=== PATIENT | female | born 1980 | race Caucasian/White ===

== ENCOUNTER 2016-07-17 15:43 | Emergency (ER) | payer OTHER ==
--- NOTE | 2016-07-17 17:49 | ED NURSING NOTES ---
Clinical Report - Nurses [facility] [address] [place] [address] 07/17/2016 15:44 Patient: TRACY GOLDSMITH TRIAGE Triage time 16:Jul 17 2016. Acuity: LEVEL 4. Chief Complaint: SKIN LESION. --16:24 Justin Bailey R.N. 16:21 07/17/16. BP: 126/83. HR: 80. RR: 18. O2 saturation: 100%. Temp: 98.1 F. Pain level now 0/10. --16:24 Justin Bailey R.N. Weight: 104.3 kg stated. Height/Length: 69 inches Per Patient. BMI: 34. --16:23 Justin Bailey R.N. Medications None. --16:22 Justin Bailey R.N. Allergies No Known Drug Allergy. --16:22 Justin Bailey R.N. History Arrived by private vehicle. ( Pt reports hx of abcess today abcess on inside of thigh). Reported as located on the left thigh. Onset. (3 days). SOCIAL HX: Light tobacco smoker. Occasional alcohol use. History of occasional drug use: marijuana. --16:24 Justin Bailey R.N. Interventions ID band on patient. To treatment room. --16:24 Justin Bailey R.N. PHYSICAL ASSESSMENT GENERAL / NEURO / PSYCH: Alert. Appears in pain. Oriented X 4. HEENT: Pupils equal, round and reactive to light. Mucous membranes are pink. RESPIRATORY: Respirations not labored. CVS: Capillary refill less than 2 seconds. Pulses within normal limits. GI / : Abdomen nontender. SKIN: Skin is warm. Skin lesion on the left thigh. --16:26 Justin Bailey R.N. NURSING PROGRESS NOTES Monitoring of patient in place. Patient gowned. Reassurance given. Call light placed in reach. Side rails up x 1. Bed placed in lowest position. --16:27 Leo, Justin, R.N. DISPOSITION / DISCHARGE Departure time: 1800. No learning barriers present. Discharge instructions provided and reviewed with the patient. Reviewed warnings. Reviewed medication(s). Treatments reviewed. Reviewed referrals. Written instructions provided in Portuguese. The patient was discharged by the physician. She was discharged home. She left the Emergency Department ambulatory and via private vehicle. Family member driving. --18:21 Justin Bailey R.N. 18:20 07/17/16. BP: 149/71. HR: 85. RR: 18. O2 saturation: 100%. Temp: 98.9 F. --18:21 Justin Bailey R.N. Locked/Released at 07/17/2016 20:59 by Justin Bailey R.N.
--- NOTE | 2016-07-17 17:49 | ED CLINICAL REPORT ---
Clinical Report - Physicians/Mid Levels [facility] [address] [place] [address] 07/17/2016 15:44 Patient: TRACY GOLDSMITH Time Seen: 16:59. Arrived- By private vehicle. Historian- patient. HISTORY OF PRESENT ILLNESS Chief Complaint: TENDER AREA. This started 3 days ago and is still present. It was gradual in onset and has been constant. It is described as painful. It has been located on the left thigh. No cause has been identified. Similar symptoms previously: Several times. REVIEW OF SYSTEMS No fever, chills, cough, difficulty breathing or abdominal pain. No nausea, diarrhea or vomiting. PAST HISTORY PCP: Prior Abscesses. SOCIAL HISTORY Current some days smoker. ADDITIONAL NOTES The nursing notes have been reviewed. PHYSICAL EXAM Vital Signs: 07/17/2016 18:20 BP: 149/71. HR: 85. RR: 18. O2 saturation: 100%. Temp: 98.9 F. 07/17/2016 16:21 BP: 126/83. HR: 80. RR: 18. O2 saturation: 100%. Temp: 98.1 F. Respiratory: Breath sounds normal. Abdomen: Nontender. Skin: Single medium abscess to left thigh. Extremities: Left thigh: tenderness and swelling located in the medial aspect of upper thigh. LABS, X-RAYS, AND EKG Laboratory Tests: Culture, Wound Deep: (ANNA: 07/17/2016 17:30) ( MsgRcvd 07/18/2016 10:27) IP Specimen Comment: L THIGH SPECIMEN DESCRIPTION: SWAB Test Result Flag Units (Reference) GRAM STAIN, WOUND, DEEP GRAM POSITIVE COCCI: FEW WHITE BLOOD CELLS: FEW CULTURE, WOUND DEEP, AEROBIC DATE: 07/18/16 PRELIM REPORT: PRELIMINARY REPORT #1 VERY EARLY GROWTH: VERY EARLY GROWTH: CULTURE TOO YOUNG FOR WORKUP-REINCUBATED . PROGRESS AND PROCEDURES Incision & Drainage of Abscess: The abscess is located in the left thigh. Consent was obtained. Local anesthesia provided using 0.50% Marcaine. Skin cleansed with Betadine. The abscess was incised with a #15 surgical blade. A small amount of pus was drained. Cavity was irrigated with saline and packed with gauze. Sample obtained for cultures. Estimated blood loss: 2 mL. Disposition: Discharged. Condition: stable. CLINICAL IMPRESSION Single abscess to the left lower extremity with incision and drainage. INSTRUCTIONS (IMMEDIATE RECHECK FOR INCREASING REDNESS SWELLING OR PAIN. RECHECK ABSCESS IN 3 DAYS - SOONER IF NEEDED). Prescription Medications: Hydrocodone/APAP 5mg / 325mg: take 1-2 orally as needed for pain. Dispense twelve (12). No refill. Bactrim DS 800 mg / 160 mg: Take 1 tablet orally every 12 hours for 7 days. Dispense fourteen (14). No refills. Substitution is permissible. Understanding of the discharge instructions verbalized by patient. Follow-up with: [facility], , , [address], [facility], [id number] Follow up. Call for an appointment. Reason for referral: ESTABLISH PRIMARY CARE AND RECHECK ABSCESS. (Electronically signed by Lane Gallegos MD 07/19/2016 23:02)
--- NOTE | 2016-07-17 17:49 | ED NURSING NOTES ---
Clinical Report - Nurses [facility] [address] [place] [address] 07/17/2016 15:44 Patient: TRACY GOLDSMITH TRIAGE Triage time 16:Jul 17 2016. Acuity: LEVEL 4. Chief Complaint: SKIN LESION. --16:24 Justin Bailey R.N. 16:21 07/17/16. BP: 126/83. HR: 80. RR: 18. O2 saturation: 100%. Temp: 98.1 F. Pain level now 0/10. --16:24 Justin Bailey R.N. Weight: 104.3 kg stated. Height/Length: 69 inches Per Patient. BMI: 34. --16:23 Justin Bailey R.N. Medications None. --16:22 Justin Bailey R.N. Allergies No Known Drug Allergy. --16:22 Justin Bailey R.N. History Arrived by private vehicle. ( Pt reports hx of abcess today abcess on inside of thigh). Reported as located on the left thigh. Onset. (3 days). SOCIAL HX: Light tobacco smoker. Occasional alcohol use. History of occasional drug use: marijuana. --16:24 Justin Bailey R.N. Interventions ID band on patient. To treatment room. --16:24 Justin Bailey R.N. PHYSICAL ASSESSMENT GENERAL / NEURO / PSYCH: Alert. Appears in pain. Oriented X 4. HEENT: Pupils equal, round and reactive to light. Mucous membranes are pink. RESPIRATORY: Respirations not labored. CVS: Capillary refill less than 2 seconds. Pulses within normal limits. GI / : Abdomen nontender. SKIN: Skin is warm. Skin lesion on the left thigh. --16:26 Justin Bailey R.N. NURSING PROGRESS NOTES Monitoring of patient in place. Patient gowned. Reassurance given. Call light placed in reach. Side rails up x 1. Bed placed in lowest position. --16:27 Leo, Justin, R.N. DISPOSITION / DISCHARGE Departure time: 1800. No learning barriers present. Discharge instructions provided and reviewed with the patient. Reviewed warnings. Reviewed medication(s). Treatments reviewed. Reviewed referrals. Written instructions provided in Greek. The patient was discharged by the physician. She was discharged home. She left the Emergency Department ambulatory and via private vehicle. Family member driving. --18:21 Justin Bailey R.N. 18:20 07/17/16. BP: 149/71. HR: 85. RR: 18. O2 saturation: 100%. Temp: 98.9 F. --18:21 Justin Bailey R.N. Locked/Released at 07/17/2016 20:59 by Justin Bailey R.N.
--- NOTE | 2016-07-17 17:49 | ED ORDER SUMMARY ---
..... Patient: TRACY GOLDSMITH OrderSheet [facility] VisitID: [id number] [address] [place] [address] 35y, F Registration Date/Time: 07/17/2016 ORDER SHEET Weight: 104.3 kg (stated) Allergies: No Known Drug Allergy GENERAL ORDERS: Culture, Wound Deep (Leg) (swab) (L thigh) Urgent (17:44 07/17/2016 [facility]) (Ack 17:48 Chrissy) - (DRESSING PLEASE) (17:45 07/17/2016 [facility]) (Ack 17:48 Chrissy) MEDICATION ORDERS: IV FLUIDS: ORDER SHEET NOTES: [Electronically signed by Justin Bailey R.N. (20:59 07/17/2016)] [Electronically signed by Lane Gallegos MD (23:02 07/19/2016)] [Electronically locked/signed by Justin Bailey R.N. (20:59 07/17/2016)]
--- NOTE | 2016-07-17 17:49 | ED ORDER SUMMARY ---
..... Patient: TRACY GOLDSMITH OrderSheet [facility] VisitID: [id number] [address] [place] [address] 35y, F Registration Date/Time: 07/17/2016 ORDER SHEET Weight: 104.3 kg (stated) Allergies: No Known Drug Allergy GENERAL ORDERS: Culture, Wound Deep (Leg) (swab) (L thigh) Urgent (17:44 07/17/2016 [facility]) (Ack 17:48 Chrissy) - (DRESSING PLEASE) (17:45 07/17/2016 [facility]) (Ack 17:48 Chrissy) MEDICATION ORDERS: IV FLUIDS: ORDER SHEET NOTES: [Electronically signed by Justin Bailey R.N. (20:59 07/17/2016)] [Electronically signed by Lane Gallegos MD (23:02 07/19/2016)] [Electronically locked/signed by Justin Bailey R.N. (20:59 07/17/2016)]
--- NOTE | 2016-07-17 17:49 | ED CLINICAL REPORT ---
Clinical Report - Physicians/Mid Levels [facility] [address] [place] [address] 07/17/2016 15:44 Patient: TRACY GOLDSMITH Time Seen: 16:59. Arrived- By private vehicle. Historian- patient. HISTORY OF PRESENT ILLNESS Chief Complaint: TENDER AREA. This started 3 days ago and is still present. It was gradual in onset and has been constant. It is described as painful. It has been located on the left thigh. No cause has been identified. Similar symptoms previously: Several times. REVIEW OF SYSTEMS No fever, chills, cough, difficulty breathing or abdominal pain. No nausea, diarrhea or vomiting. PAST HISTORY PCP: Prior Abscesses. SOCIAL HISTORY Current some days smoker. ADDITIONAL NOTES The nursing notes have been reviewed. PHYSICAL EXAM Vital Signs: 07/17/2016 18:20 BP: 149/71. HR: 85. RR: 18. O2 saturation: 100%. Temp: 98.9 F. 07/17/2016 16:21 BP: 126/83. HR: 80. RR: 18. O2 saturation: 100%. Temp: 98.1 F. Respiratory: Breath sounds normal. Abdomen: Nontender. Skin: Single medium abscess to left thigh. Extremities: Left thigh: tenderness and swelling located in the medial aspect of upper thigh. LABS, X-RAYS, AND EKG Laboratory Tests: Culture, Wound Deep: (ANNA: 07/17/2016 17:30) ( MsgRcvd 07/18/2016 10:27) IP Specimen Comment: L THIGH SPECIMEN DESCRIPTION: SWAB Test Result Flag Units (Reference) GRAM STAIN, WOUND, DEEP GRAM POSITIVE COCCI: FEW WHITE BLOOD CELLS: FEW CULTURE, WOUND DEEP, AEROBIC DATE: 07/18/16 PRELIM REPORT: PRELIMINARY REPORT #1 VERY EARLY GROWTH: VERY EARLY GROWTH: CULTURE TOO YOUNG FOR WORKUP-REINCUBATED . PROGRESS AND PROCEDURES Incision & Drainage of Abscess: The abscess is located in the left thigh. Consent was obtained. Local anesthesia provided using 0.50% Marcaine. Skin cleansed with Betadine. The abscess was incised with a #15 surgical blade. A small amount of pus was drained. Cavity was irrigated with saline and packed with gauze. Sample obtained for cultures. Estimated blood loss: 2 mL. Disposition: Discharged. Condition: stable. CLINICAL IMPRESSION Single abscess to the left lower extremity with incision and drainage. INSTRUCTIONS (IMMEDIATE RECHECK FOR INCREASING REDNESS SWELLING OR PAIN. RECHECK ABSCESS IN 3 DAYS - SOONER IF NEEDED). Prescription Medications: Hydrocodone/APAP 5mg / 325mg: take 1-2 orally as needed for pain. Dispense twelve (12). No refill. Bactrim DS 800 mg / 160 mg: Take 1 tablet orally every 12 hours for 7 days. Dispense fourteen (14). No refills. Substitution is permissible. Understanding of the discharge instructions verbalized by patient. Follow-up with: [facility], , , [address], [facility], [id number] Follow up. Call for an appointment. Reason for referral: ESTABLISH PRIMARY CARE AND RECHECK ABSCESS. (Electronically signed by Lane Gallegos MD 07/19/2016 23:02)
--- NOTE | 2016-07-19 23:02 | ED DISCHARGE INSTRUCTIONS ---
Patient: TRACY GOLDSMITH General Instructions [facility] VisitID: [id number] [address] [place] [address] 35y, F Registration Date/Time: 07/17/2016 Single abscess to the left lower extremity with incision and drainage. INSTRUCTIONS (IMMEDIATE RECHECK FOR INCREASING REDNESS SWELLING OR PAIN. RECHECK ABSCESS IN 3 DAYS - SOONER IF NEEDED). Prescription Medications: Hydrocodone/APAP 5mg / 325mg: take 1-2 orally as needed for pain. Dispense twelve (12). No refill. Bactrim DS 800 mg / 160 mg: Take 1 tablet orally every 12 hours for 7 days. Dispense fourteen (14). No refills. Substitution is permissible. Understanding of the discharge instructions verbalized by patient. Follow-up with: [facility], , , [address], [place], [id number] Follow up. Call for an appointment. Reason for referral: ESTABLISH PRIMARY CARE AND RECHECK ABSCESS. ADDITIONAL INFORMATION Abscess [Incision & Drainage] An abscess (sometimes called a boil) occurs when bacteria get trapped under the skin and begin to grow. Pus forms inside the abscess as the body responds to the bacteria. An abscess can occur with an insect bite, ingrown hair, blocked oil gland, pimple, cyst, or puncture wound. Treatment of your abscess has required an incision to drain the pus. If the abscess pocket was large, a gauze packing may have been inserted. This will need to be removed and possibly replaced on your next visit. Antibiotics are not required in the treatment of a simple abscess, unless the infection is spreading into the skin around the wound (known as cellulitis). Healing of the wound will take about one to two weeks depending on the size of the abscess. Healthy tissue will grow from the bottom and sides of the opening until it seals over. Home Care: The wound may drain for the first two days. Cover the wound with a clean dry dressing. If the dressing becomes soaked with blood or pus, change it. If a gauze packing was placed inside the abscess cavity, you may be advised to remove it yourself. You may do this in the shower. Once the packing is removed, you should wash the area in the shower or bath 3 to 4 times a day, until the skin opening has closed. If you were prescribed antibiotics, take them as directed until they are all gone. You may use acetaminophen (Tylenol) or ibuprofen (Motrin, Advil) to control pain, unless another pain medicine was prescribed. [ NOTE: If you have liver disease or ever had a stomach ulcer, talk with your doctor before using these medicines.] Follow Up with your doctor as advised by our staff. If a gauze packing was inserted in your wound, it should be removed in 1-2 days. Check your wound every day for the signs of worsening infection listed below. Get Prompt Medical Attention if any of the following occur: Increasing redness or swelling Red streaks in the skin leading away from the wound Increasing local pain or swelling Continued pus draining from the wound two days after treatment Fever of 100.4F (38C) or higher, or as directed by your healthcare provider Hydrocodone Bitartrate, Acetaminophen Oral tablet What is this medicine? ACETAMINOPHEN; HYDROCODONE (a set a CHANA jeffrey fen; marley droe KOE done) is a pain reliever. It is used to treat mild to moderate pain. How should I use this medicine? Take this medicine by mouth. Swallow it with a full glass of water. Follow the directions on the prescription label. If the medicine upsets your stomach, take the medicine with food or milk. Do not take more than you are told to take. Talk to your kettle girl regarding the use of this medicine in children. This medicine is not approved for use in children. What side effects may I notice from receiving this medicine? Side effects that you should report to your doctor or health critical care educator as soon as possible: allergic reactions like skin rash, itching or hives, swelling of the face, lips, or tongue breathing problems confusion feeling faint or lightheaded, falls stomach pain yellowing of the eyes or skin Side effects that usually do not require medical attention (report to your doctor or health critical care educator if they continue or are bothersome): nausea, vomiting stomach upset What may interact with this medicine? alcohol antihistamines isoniazid medicines for depression, anxiety, or psychotic disturbances medicines for sleep muscle relaxants naltrexone narcotic medicines (opiates) for pain phenobarbital ritonavir tramadol What if I miss a dose? If you miss a dose, take it as soon as you can. If it is almost time for your next dose, take only that dose. Do not take double or extra doses. Where should I keep my medicine? Keep out of the reach of children. This medicine can be abused. Keep your medicine in a safe place to protect it from theft. Do not share this medicine with anyone. Selling or giving away this medicine is dangerous and against the law. Store at room temperature between 15 and 30 degrees C (59 and 86 degrees F). Protect from light. Keep container tightly closed. Throw away any unused medicine after the expiration date. Discard unused medicine and used packaging carefully. Pets and children can be harmed if they find used or lost packages. What should I tell my health care provider before I take this medicine? They need to know if you have any of these conditions: brain tumor Crohn's disease, inflammatory bowel disease, or ulcerative colitis drink more than 3 alcohol-containing drinks per day drug abuse or addiction head injury heart or circulation problems kidney disease or problems going to the bathroom liver disease lung disease, asthma, or breathing problems an unusual or allergic reaction to acetaminophen, hydrocodone, other opioid analgesics, other medicines, foods, dyes, or preservatives or trying to get breast-feeding What should I watch for while using this medicine? Tell your doctor or health critical care educator if your pain does not go away, if it gets worse, or if you have new or a different type of pain. You may develop tolerance to the medicine. Tolerance means that you will need a higher dose of the medicine for pain relief. Tolerance is normal and is expected if you take the medicine for a long time. Do not suddenly stop taking your medicine because you may develop a severe reaction. Your body becomes used to the medicine. This does NOT mean you are addicted. Addiction is a behavior related to getting and using a drug for a non-medical reason. If you have pain, you have a medical reason to take pain medicine. Your doctor will tell you how much medicine to take. If your doctor wants you to stop the medicine, the dose will be slowly lowered over time to avoid any side effects. You may get drowsy or dizzy when you first start taking the medicine or change doses. Do not drive, use machinery, or do anything that may be dangerous until you know how the medicine affects you. Stand or sit up slowly. There are different types of narcotic medicines (opiates) for pain. If you take more than one type at the same time, you may have more side effects. Give your health care provider a list of all medicines you use. Your doctor will tell you how much medicine to take. Do not take more medicine than directed. Call emergency for help if you have problems breathing. The medicine will cause constipation. Try to have a bowel movement at least every 2 to 3 days. If you do not have a bowel movement for 3 days, call your doctor or health critical care educator. Too much acetaminophen can be very dangerous. Do not take Tylenol (acetaminophen) or medicines that contain acetaminophen with this medicine. Many non-prescription medicines contain acetaminophen. Always read the labels carefully. You have been given the following additional information: Abscess, Incision And Drainage Hydrocodone Bitartrate, Acetaminophen Oral tablet (Electronically signed by Lane Gallegos MD 07/19/2016 23:02)
--- NOTE | 2016-07-19 23:02 | ED DISCHARGE INSTRUCTIONS ---
Patient: TRACY GOLDSMITH General Instructions [facility] VisitID: [id number] [address] [place] [address] 35y, F Registration Date/Time: 07/17/2016 Single abscess to the left lower extremity with incision and drainage. INSTRUCTIONS (IMMEDIATE RECHECK FOR INCREASING REDNESS SWELLING OR PAIN. RECHECK ABSCESS IN 3 DAYS - SOONER IF NEEDED). Prescription Medications: Hydrocodone/APAP 5mg / 325mg: take 1-2 orally as needed for pain. Dispense twelve (12). No refill. Bactrim DS 800 mg / 160 mg: Take 1 tablet orally every 12 hours for 7 days. Dispense fourteen (14). No refills. Substitution is permissible. Understanding of the discharge instructions verbalized by patient. Follow-up with: [facility], , , [address], [place], [address] Follow up. Call for an appointment. Reason for referral: ESTABLISH PRIMARY CARE AND RECHECK ABSCESS. ADDITIONAL INFORMATION Abscess [Incision & Drainage] An abscess (sometimes called a boil) occurs when bacteria get trapped under the skin and begin to grow. Pus forms inside the abscess as the body responds to the bacteria. An abscess can occur with an insect bite, ingrown hair, blocked oil gland, pimple, cyst, or puncture wound. Treatment of your abscess has required an incision to drain the pus. If the abscess pocket was large, a gauze packing may have been inserted. This will need to be removed and possibly replaced on your next visit. Antibiotics are not required in the treatment of a simple abscess, unless the infection is spreading into the skin around the wound (known as cellulitis). Healing of the wound will take about one to two weeks depending on the size of the abscess. Healthy tissue will grow from the bottom and sides of the opening until it seals over. Home Care: The wound may drain for the first two days. Cover the wound with a clean dry dressing. If the dressing becomes soaked with blood or pus, change it. If a gauze packing was placed inside the abscess cavity, you may be advised to remove it yourself. You may do this in the shower. Once the packing is removed, you should wash the area in the shower or bath 3 to 4 times a day, until the skin opening has closed. If you were prescribed antibiotics, take them as directed until they are all gone. You may use acetaminophen (Tylenol) or ibuprofen (Motrin, Advil) to control pain, unless another pain medicine was prescribed. [ NOTE: If you have liver disease or ever had a stomach ulcer, talk with your doctor before using these medicines.] Follow Up with your doctor as advised by our staff. If a gauze packing was inserted in your wound, it should be removed in 1-2 days. Check your wound every day for the signs of worsening infection listed below. Get Prompt Medical Attention if any of the following occur: Increasing redness or swelling Red streaks in the skin leading away from the wound Increasing local pain or swelling Continued pus draining from the wound two days after treatment Fever of 100.4F (38C) or higher, or as directed by your healthcare provider Hydrocodone Bitartrate, Acetaminophen Oral tablet What is this medicine? ACETAMINOPHEN; HYDROCODONE (a set a CHANA jeffrey fen; marley droe KOE done) is a pain reliever. It is used to treat mild to moderate pain. How should I use this medicine? Take this medicine by mouth. Swallow it with a full glass of water. Follow the directions on the prescription label. If the medicine upsets your stomach, take the medicine with food or milk. Do not take more than you are told to take. Talk to your food adviser regarding the use of this medicine in children. This medicine is not approved for use in children. What side effects may I notice from receiving this medicine? Side effects that you should report to your doctor or health healthcare analyst as soon as possible: allergic reactions like skin rash, itching or hives, swelling of the face, lips, or tongue breathing problems confusion feeling faint or lightheaded, falls stomach pain yellowing of the eyes or skin Side effects that usually do not require medical attention (report to your doctor or health healthcare analyst if they continue or are bothersome): nausea, vomiting stomach upset What may interact with this medicine? alcohol antihistamines isoniazid medicines for depression, anxiety, or psychotic disturbances medicines for sleep muscle relaxants naltrexone narcotic medicines (opiates) for pain phenobarbital ritonavir tramadol What if I miss a dose? If you miss a dose, take it as soon as you can. If it is almost time for your next dose, take only that dose. Do not take double or extra doses. Where should I keep my medicine? Keep out of the reach of children. This medicine can be abused. Keep your medicine in a safe place to protect it from theft. Do not share this medicine with anyone. Selling or giving away this medicine is dangerous and against the law. Store at room temperature between 15 and 30 degrees C (59 and 86 degrees F). Protect from light. Keep container tightly closed. Throw away any unused medicine after the expiration date. Discard unused medicine and used packaging carefully. Pets and children can be harmed if they find used or lost packages. What should I tell my health care provider before I take this medicine? They need to know if you have any of these conditions: brain tumor Crohn's disease, inflammatory bowel disease, or ulcerative colitis drink more than 3 alcohol-containing drinks per day drug abuse or addiction head injury heart or circulation problems kidney disease or problems going to the bathroom liver disease lung disease, asthma, or breathing problems an unusual or allergic reaction to acetaminophen, hydrocodone, other opioid analgesics, other medicines, foods, dyes, or preservatives or trying to get breast-feeding What should I watch for while using this medicine? Tell your doctor or health healthcare analyst if your pain does not go away, if it gets worse, or if you have new or a different type of pain. You may develop tolerance to the medicine. Tolerance means that you will need a higher dose of the medicine for pain relief. Tolerance is normal and is expected if you take the medicine for a long time. Do not suddenly stop taking your medicine because you may develop a severe reaction. Your body becomes used to the medicine. This does NOT mean you are addicted. Addiction is a behavior related to getting and using a drug for a non-medical reason. If you have pain, you have a medical reason to take pain medicine. Your doctor will tell you how much medicine to take. If your doctor wants you to stop the medicine, the dose will be slowly lowered over time to avoid any side effects. You may get drowsy or dizzy when you first start taking the medicine or change doses. Do not drive, use machinery, or do anything that may be dangerous until you know how the medicine affects you. Stand or sit up slowly. There are different types of narcotic medicines (opiates) for pain. If you take more than one type at the same time, you may have more side effects. Give your health care provider a list of all medicines you use. Your doctor will tell you how much medicine to take. Do not take more medicine than directed. Call emergency for help if you have problems breathing. The medicine will cause constipation. Try to have a bowel movement at least every 2 to 3 days. If you do not have a bowel movement for 3 days, call your doctor or health healthcare analyst. Too much acetaminophen can be very dangerous. Do not take Tylenol (acetaminophen) or medicines that contain acetaminophen with this medicine. Many non-prescription medicines contain acetaminophen. Always read the labels carefully. You have been given the following additional information: Abscess, Incision And Drainage Hydrocodone Bitartrate, Acetaminophen Oral tablet (Electronically signed by Lane Gallegos MD 07/19/2016 23:02)
--- NOTE | 2016-07-19 23:03 | ED MAR SUMMARY ---
..... Medication Administration Record [facility] [address], [place] [id number] Patient: TRACY GOLDSMITH Visit ID: [id number] 35y, F Weight: 104.3 kg Height/Length: 69 in BMI: 34 ALLERGIES: No Known Drug Allergy
--- NOTE | 2016-07-19 23:03 | ED MED RECONCILIATION SUMMARY ---
Patient: TRACY GOLDSMITH Medication Reconciliation Report [facility] VisitID: [id number] [address] [place] [address] 35y, F Registration Date/Time: 07/17/2016 Weight: 104.3 kg Height/Length: 69 in. BMI: 34.0 ALLERGIES: No Known Drug Allergy The patient's Home Medications are listed below: NONE. The source(s) of the original Home Medication information: Not obtained. The following Medications were given to the patient in the Emergency Department: None. The following Medications were prescribed to the patient: Hydrocodone/APAP 5mg / 325mg: take 1-2 orally as needed for pain. Dispense twelve (12). No refill. -- Lane Gallegos MD Bactrim DS 800 mg / 160 mg: Take 1 tablet orally every 12 hours for 7 days. Dispense fourteen (14). No refills. Substitution is permissible. -- Lane Gallegos MD
--- NOTE | 2016-07-19 23:03 | ED MAR SUMMARY ---
..... Medication Administration Record [facility] [address] [place], [place] [id number] Patient: TRACY GOLDSMITH Visit ID: [id number] 35y, F Weight: 104.3 kg Height/Length: 69 in BMI: 34 ALLERGIES: No Known Drug Allergy
--- NOTE | 2016-07-19 23:03 | ED MED RECONCILIATION SUMMARY ---
Patient: TRACY GOLDSMITH Medication Reconciliation Report [facility] VisitID: [id number] [address] [place] [address] 35y, F Registration Date/Time: 07/17/2016 Weight: 104.3 kg Height/Length: 69 in. BMI: 34.0 ALLERGIES: No Known Drug Allergy The patient's Home Medications are listed below: NONE. The source(s) of the original Home Medication information: Not obtained. The following Medications were given to the patient in the Emergency Department: None. The following Medications were prescribed to the patient: Hydrocodone/APAP 5mg / 325mg: take 1-2 orally as needed for pain. Dispense twelve (12). No refill. -- Lane Gallegos MD Bactrim DS 800 mg / 160 mg: Take 1 tablet orally every 12 hours for 7 days. Dispense fourteen (14). No refills. Substitution is permissible. -- Lane Gallegos MD
== END 2016-07-17 18:00 | disposition home or self-care (01) ==
LOC: ED SRH 15:43
DX: L02.416 Cutaneous abscess of left lower limb (principal); F17.200 Nicotine dependence, unspecified, uncomplicated
CPT/HCPCS: 90131; 90309; 90470

== ENCOUNTER 2016-11-09 11:53 | Emergency (ER) | payer OTHER ==
--- NOTE | 2016-11-09 14:02 | DIAGNOSTIC IMAGING REPORT ---
PROCEDURE: XR LUMBAR SPINE 2 OR 3 VIEWS INDICATION: TRAUMA/INJURY TECHNIQUE: Three views. COMPARISON: None. FINDINGS: Osseous structures and disc spaces are normal. No evidence of an acute process or fracture. IMPRESSION: 1. Negative lumbar spine.
--- NOTE | 2016-11-09 14:14 | ED NURSING NOTES ---
Clinical Report - Nurses [facility] [address] [place] [address] 11/09/2016 11:53 Patient: TRACY GOLDSMITH TRIAGE Triage time 12:Nov 09 2016. Acuity: LEVEL 3. Chief Complaint: INJURY TO THE RIGHT HIP. MAYCOL COMA SCORE: Maycol Coma Scale: 15- eyes open spontaneously (4); best verbal response- oriented x 4 (5); best motor response- obeys commands (6). --12:36 Ade Levy R.N. 12:31 11/09/16. BP: 108/80. HR: 74. RR: 18. O2 saturation: 97%. Temp: 98.1 F. Pain level now 10/10. --12:36 Ade Levy R.N. Weight: 113.3 kg stated. Height/Length: 69 inches Per Patient. BMI: 36.9. --12:33 Ade Levy R.N. Medications Ibuprofen Oral. --12:33 Ade Levy R.N. Allergies Codeine. --12:33 Ade Levy R.N. History Arrived by private vehicle. Historian: patient. Accompanied by family. This occurred at an unknown time. ( One week of siatic pains going down right leg. Patient went to MD's appointment and patient was sent here. States no injury but bought a new bed and the pain is getting worse.). She has had numbness of the right leg, tingling,, trouble walking and back pain. No weakness. 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 PAST MEDICAL HX: No history of diabetes mellitus, hypertension, heart disease or lung disease. Immunizations: up-to-date. Last normal menstrual period- October 26. SOCIAL HX: Current every day light tobacco smoker (cigarette)- less than 1/2 a pack per day. Occasional alcohol use. History of drug use: marijuana. SELF HARM ASSESSMENT: A self harm assessment was performed. The patient answered "no" to the question "Have you recently felt down, depressed, or hopeless?" and "Do you have thoughts of harming or killing yourself?". FALL RISK ASSESSMENT: Fall risk assessment completed. No fall risk identified. NUTRITIONAL RISK ASSESSMENT: The nutritional risk assessment revealed no deficiencies. FUNCTIONAL ASSESSMENT: Functional assessment: no impairments noted. LEARNING NEEDS ASSESSMENT: The learning needs assessment revealed no barriers. ABUSE ASSESSMENT: Abuse assessment: (yes) The patient was asked "Do you feel safe in your home?". SKIN INTEGRITY ASSESSMENT: Skin integrity risk assessment completed. No skin integrity risk identified. --12:36 Ade Levy R.N. PROBLEMS: Abscess. Immunizations. LNMP - Last Normal Menstrual Period. Migraine Headache. --12:33 Ade Levy R.N. ADDITIONAL SURGERIES: Bladder reconstruction. Cervix. . Tubal Ligation. --12:33 Ade Levy R.N. Interventions ID and allergy band on patient. --12:36 Ade Levy R.N. PHYSICAL ASSESSMENT To room via wheelchair. GENERAL / NEURO / PSYCH: Oriented X 4. Alert. Appears in no acute distress. EXTREMITIES: Capillary refill is less than 2 seconds in the extremities. Extremity pulses are within normal limits. Extremities exhibit normal ROM. Pain with weight bearing. Limping gait. She was unable to bear weight. Neuro-vascular status intact to the extremity. SKIN: Skin intact. Skin is warm and dry. --12:36 Ade Levy R.N. NURSING PROGRESS NOTES The initial plan of care for this patient includes an assessment with efforts to address patient positioning, appropriate ambient lighting and comfortable environmental temperature. Cold pack applied. Patient gowned. Call light placed in reach. Side rails up x 1. Bed placed in lowest position. Brakes of bed on. --12:36 Ade Levy R.N. 13:29 11/09/2016 Toradol (Ketorolac Tromethamine) IM 60 mg given. Given in the right gluteus navi. Allergies verified and confirmed 5 rights. --13:34 Concepción Rincon 13:30 11/09/16. BP: 114/79. HR: 73. RR: 18. O2 saturation: 97% on room air. Temp: 98.2 F. Pain level now: 10/10. --13:35 Concepción Rincon 13:48 11/09/16. Patient returned from radiology by stretcher with tech. (13:48 Nov 09 2016). --13:48 Concepción Rincon 14:17 11/09/2016 Dilaudid (HYDROmorphone HCl PF) IM 1 mg given. Given in the right gluteus navi. Allergies verified, confirmed 5 rights and sedative warning given to the patient and patient's courtroom deputy or calendar clerk. --14:22 Ade Levy R.N. 14:22 11/09/2016 Zofran ODT (Ondansetron) PO Oral Disintegrating Tablets 4 mg given. Allergies verified and confirmed 5 rights. --14:22 Ade Levy R.N. DISPOSITION / DISCHARGE Departure time: 1424Nov 09 2016. Condition at departure: improved. No learning barriers present. Discharge instructions provided and reviewed with the patient. Reviewed warnings. Reviewed medication(s). Treatments reviewed. Reviewed referrals. Patient verbalized understanding. Written instructions provided in Danish. The patient was discharged home and accompanied by courtroom deputy or calendar clerk. She left the Emergency Department in a wheelchair and via private vehicle. Meter Repairer Helper driving. --15:06 Ade Levy R.N. 15:05 11/09/16. BP: 100/64. HR: 56. RR: 18. O2 saturation: 98%. Temp: 98.4 F. Pain level now 4/10. --15:06 Ade Levy R.N. Locked/Released at 11/09/2016 15:06 by Ade Levy R.N.
--- NOTE | 2016-11-09 14:14 | ED ORDER SUMMARY ---
..... Patient: TRACY GOLDSMITH OrderSheet [facility] VisitID: [id number] [place] [address] 35y, F Registration Date/Time: 11/09/2016 ORDER SHEET Weight: 113.3 kg (stated) Allergies: Codeine GENERAL ORDERS: Lumbar Spine 2 or 3V Urgent (13:16 11/09/2016 HBivens A.R.N.P.) (Ack 14:04 Jamila) (14:22 LWhalen R.N.) MEDICATION ORDERS: Toradol IM 60 mg (NOW) (13:16 11/09/2016 HBivens A.R.N.P.) (Ack 13:21 ASchussein) (13:[facility] Dilaudid IM 1 mg (HIGH ALERT MEDICATION, NOW) (14:13 11/09/2016 HBivens A.R.N.P.) (14:22 LWhalen R.N.) Zofran ODT PO 4 mg (NOW) (14:13 11/09/2016 HBivens A.R.N.P.) (14:22 LWhalen R.N.) IV FLUIDS: ORDER SHEET NOTES: [Electronically signed by Ade Levy R.N. (15:06 11/09/2016)] [Electronically signed by Letty Woodward.R.N.P. (17:18 11/09/2016)] [Electronically locked/signed by Ade Levy R.N. (15:06 11/09/2016)]
--- NOTE | 2016-11-09 14:14 | ED NURSING NOTES ---
Clinical Report - Nurses [facility] [address] [place] [address] 11/09/2016 11:53 Patient: TRACY GOLDSMITH TRIAGE Triage time 12:Nov 09 2016. Acuity: LEVEL 3. Chief Complaint: INJURY TO THE RIGHT HIP. MAYCOL COMA SCORE: Maycol Coma Scale: 15- eyes open spontaneously (4); best verbal response- oriented x 4 (5); best motor response- obeys commands (6). --12:36 Ade Levy R.N. 12:31 11/09/16. BP: 108/80. HR: 74. RR: 18. O2 saturation: 97%. Temp: 98.1 F. Pain level now 10/10. --12:36 Ade Levy R.N. Weight: 113.3 kg stated. Height/Length: 69 inches Per Patient. BMI: 36.9. --12:33 Ade Levy R.N. Medications Ibuprofen Oral. --12:33 Ade Levy R.N. Allergies Codeine. --12:33 Ade Levy R.N. History Arrived by private vehicle. Historian: patient. Accompanied by family. This occurred at an unknown time. ( One week of siatic pains going down right leg. Patient went to MD's appointment and patient was sent here. States no injury but bought a new bed and the pain is getting worse.). She has had numbness of the right leg, tingling,, trouble walking and back pain. No weakness. 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 PAST MEDICAL HX: No history of diabetes mellitus, hypertension, heart disease or lung disease. Immunizations: up-to-date. Last normal menstrual period- October 26. SOCIAL HX: Current every day light tobacco smoker (cigarette)- less than 1/2 a pack per day. Occasional alcohol use. History of drug use: marijuana. SELF HARM ASSESSMENT: A self harm assessment was performed. The patient answered "no" to the question "Have you recently felt down, depressed, or hopeless?" and "Do you have thoughts of harming or killing yourself?". FALL RISK ASSESSMENT: Fall risk assessment completed. No fall risk identified. NUTRITIONAL RISK ASSESSMENT: The nutritional risk assessment revealed no deficiencies. FUNCTIONAL ASSESSMENT: Functional assessment: no impairments noted. LEARNING NEEDS ASSESSMENT: The learning needs assessment revealed no barriers. ABUSE ASSESSMENT: Abuse assessment: (yes) The patient was asked "Do you feel safe in your home?". SKIN INTEGRITY ASSESSMENT: Skin integrity risk assessment completed. No skin integrity risk identified. --12:36 Aed Levy R.N. PROBLEMS: Abscess. Immunizations. LNMP - Last Normal Menstrual Period. Migraine Headache. --12:33 Ade Levy R.N. ADDITIONAL SURGERIES: Bladder reconstruction. Cervix. . Tubal Ligation. --12:33 Ade Levy R.N. Interventions ID and allergy band on patient. --12:36 Ade Levy R.N. PHYSICAL ASSESSMENT To room via wheelchair. GENERAL / NEURO / PSYCH: Oriented X 4. Alert. Appears in no acute distress. EXTREMITIES: Capillary refill is less than 2 seconds in the extremities. Extremity pulses are within normal limits. Extremities exhibit normal ROM. Pain with weight bearing. Limping gait. She was unable to bear weight. Neuro-vascular status intact to the extremity. SKIN: Skin intact. Skin is warm and dry. --12:36 Ade Levy R.N. NURSING PROGRESS NOTES The initial plan of care for this patient includes an assessment with efforts to address patient positioning, appropriate ambient lighting and comfortable environmental temperature. Cold pack applied. Patient gowned. Call light placed in reach. Side rails up x 1. Bed placed in lowest position. Brakes of bed on. --12:36 Ade Levy R.N. 13:29 11/09/2016 Toradol (Ketorolac Tromethamine) IM 60 mg given. Given in the right gluteus navi. Allergies verified and confirmed 5 rights. --13:34 Concepción Rincon 13:30 11/09/16. BP: 114/79. HR: 73. RR: 18. O2 saturation: 97% on room air. Temp: 98.2 F. Pain level now: 10/10. --13:35 Concepción Rincon 13:48 11/09/16. Patient returned from radiology by stretcher with tech. (13:48 Nov 09 2016). --13:48 Concepción Rincon 14:17 11/09/2016 Dilaudid (HYDROmorphone HCl PF) IM 1 mg given. Given in the right gluteus navi. Allergies verified, confirmed 5 rights and sedative warning given to the patient and patient's operator supply. --14:22 Ade Levy R.N. 14:22 11/09/2016 Zofran ODT (Ondansetron) PO Oral Disintegrating Tablets 4 mg given. Allergies verified and confirmed 5 rights. --14:22 Ade Levy R.N. DISPOSITION / DISCHARGE Departure time: 1424Nov 09 2016. Condition at departure: improved. No learning barriers present. Discharge instructions provided and reviewed with the patient. Reviewed warnings. Reviewed medication(s). Treatments reviewed. Reviewed referrals. Patient verbalized understanding. Written instructions provided in Setswana. The patient was discharged home and accompanied by operator supply. She left the Emergency Department in a wheelchair and via private vehicle. Tumbler Dyeing Machine Operator driving. --15:06 Ade Levy R.N. 15:05 11/09/16. BP: 100/64. HR: 56. RR: 18. O2 saturation: 98%. Temp: 98.4 F. Pain level now 4/10. --15:06 Ade Levy R.N. Locked/Released at 11/09/2016 15:06 by Ade Levy R.N.
--- NOTE | 2016-11-09 14:14 | ED ORDER SUMMARY ---
..... Patient: TRACY GOLDSMITH OrderSheet [facility] VisitID: [id number] [place] [address] 35y, F Registration Date/Time: 11/09/2016 ORDER SHEET Weight: 113.3 kg (stated) Allergies: Codeine GENERAL ORDERS: Lumbar Spine 2 or 3V Urgent (13:16 11/09/2016 HBivens A.R.N.P.) (Ack 14:04 Jamila) (14:22 LWhalen R.N.) MEDICATION ORDERS: Toradol IM 60 mg (NOW) (13:16 11/09/2016 HBivens A.R.N.P.) (Ack 13:21 ASchussein) (13:34 [facility] [place] Dilaudid IM 1 mg (HIGH ALERT MEDICATION, NOW) (14:13 11/09/2016 HBivens A.R.N.P.) (14:22 LWhalen R.N.) Zofran ODT PO 4 mg (NOW) (14:13 11/09/2016 HBivens A.R.N.P.) (14:22 LWhalen R.N.) IV FLUIDS: ORDER SHEET NOTES: [Electronically signed by Ade Levy R.N. (15:06 11/09/2016)] [Electronically signed by Letty Woodward.R.N.P. (17:18 11/09/2016)] [Electronically locked/signed by Ade Levy R.N. (15:06 11/09/2016)]
--- NOTE | 2016-11-09 14:14 | ED CLINICAL REPORT ---
Clinical Report - Physicians/Mid Levels [facility] [address] [place] [address] 11/09/2016 11:53 Patient: TRACY GOLDSMITH Time Seen: 13:03; initial patient contact, initial documentation, patient care assumed. Arrived- By private vehicle. Historian- patient. HISTORY OF PRESENT ILLNESS Chief Complaint: BACK PAIN and CHRONIC BACK PAIN. It is described as being severe and in the area of the lower lumbar spine, right lower lumbar spine, right SI joint and right gluteus. It is described as radiating to the right hip and thigh. The quality is noted to be sharp, "pain" and similar to prior episodes. Modifying factors- worsened by walking, rotation of the body to the right or left, bending over or lifting. Not relieved by anything. Onset- about a year ago and it is still present and worsening. (worse 1 weeks ago). It was abrupt in onset. No bladder dysfunction, bowel dysfunction or motor loss. Mild sensory loss involving the right upper leg (c/o numbness). Additional history - says she injured her back about a year ago, states she was dx with sciatica. Patient denies an injury but injury to the head or neck. No other injury. Similar symptoms previously: Chronically, milder. Recent medical care: The patient was seen recently in the office. ( went to pcp [employer], sent here for xrays and her appt was cancelled). REVIEW OF SYSTEMS No fever, difficulty with urination, urinary frequency, hematuria or difficulty breathing. No chest pain, abdominal pain, vomiting or diarrhea. All systems otherwise negative, except as recorded above. PAST HISTORY See nurses notes. PROBLEMS: Abscess. Immunizations. LNMP - Last Normal Menstrual Period. Migraine Headache. --12:33 Ade Levy R.N. ADDITIONAL SURGERIES: Bladder reconstruction. Cervix. . Tubal Ligation. --12:33 Ade Levy R.N. SOCIAL HISTORY Light tobacco smoker. Occasional alcohol use. History of drug use: marijuana. No recent travel. Is a local resident. FAMILY HISTORY Negative. ADDITIONAL NOTES The nursing notes have been reviewed with agreement regarding the chief complaint, HPI, ROS, PMH and patient medications and allergies. PHYSICAL EXAM Vital Signs: 11/09/2016 12:31 BP: 108/80. HR: 74. RR: 18. O2 saturation: 97%. Temp: 98.1 F. Have been reviewed as normal and appear to be correct. Appearance: Alert. No acute distress. HEENT: Normal external inspection. Eyes: Pupils equal, round and reactive to light. Neck: Normal inspection. Neck nontender. Painless ROM. CVS: Heart sounds normal. Pulses normal. Respiratory: No respiratory distress. Breath sounds normal. Abdomen: No visible injury. Soft and nontender. Moderately obese. Back: Abnormal inspection. Back tenderness present. Moderate vertebral point tenderness over the lower lumbar spine. Severe soft tissue tenderness in the right mid and lower lumbar area. No painless ROM. Limited ROM in the back. No muscle spasm in the back or CVA tenderness. Skin: Skin warm and dry. Normal skin color. No rash. Normal skin turgor. Extremities: Extremities exhibit normal ROM. Extremities nontender. Neuro: Oriented X 3. Mood/affect normal. No motor deficit. No sensory deficit. LABS, X-RAYS, AND EKG X-Rays: LS spine series negative. LS-Spine X-rays: (IMPRESSION: 1. Negative lumbar spine. Electronically Final signed by:Basilio Smith MD 11/09/2016 2:03:01 PM). The X-rays were interpreted by the radiologist and contemporaneously by me. Interpretation time: 14:08. PROGRESS AND PROCEDURES Course of Care: 1408. pt either asleep or resting quietly, pt touched to get her attention or wake her up, after I woke her up, pt started crying saying she was still hurting, agreed to give more pain meds. 11/09/2016 13:30 BP: 114/79. HR: 73. RR: 18. O2 saturation: 97%. Temp: 98.2 F. Pain level now: 10/10. Vital Signs: have been reviewed as normal and appear to be correct. Patient counseled in person regarding the patient's stable condition, test results and diagnosis. 14:08. Differential Diagnosis: I considered Musculo-skeletal strain, contusion, disk protrusion, vertebral fracture, facet syndrome, sacroiliac joint strain, sciatica, osteoarthritis, lumbar spondylosis, spinal stenosis, ankylosing spondylitis, sacroiliac joint inflammation, pyelonephritis and ureterolithiasis as a possible cause of back pain in this patient. This is a partial list of diagnoses considered. Above considerations are based on history, physical exam, reassessment and X-Ray data. Differential diagnosis was discussed with patient. Disposition: Discharged home in good and improved condition (14:13). Condition: good and stable. CLINICAL IMPRESSION Chronic nontraumatic lumbar back pain. Sciatica present on the right. No back pain associated with scoliosis, degenerative joint disease, degenerative disc disease, disc herniation or spinal stenosis. No radiculopathy or neurological deficit. INSTRUCTIONS Warnings: GENERAL WARNINGS: Return or contact your physician immediately if your condition worsens or changes unexpectedly, if not improving as expected, or if other problems arise. SPECIFICALLY, return if you develop incontinence of urine (loss of bladder control). chest pain, trouble breathing, abdominal pain. Prescription Medications: Flexeril 10 mg: Take 1 orally every 8 hours as needed for muscle spasm. Dispense twenty (20). No refills. Substitution is permissible. Ultram 50 mg tablets: take 1-2 orally every 6 hours as needed for pain. Dispense twenty (20). No refills. Substitution is permissible. Follow-up: Follow up with your doctor in about one week even if well. Call for an appointment. Summary of care provided to patient. Understanding of the discharge instructions verbalized by patient. (Electronically signed by Letty Woodward A.R.N.P. 11/09/2016 17:18)
--- NOTE | 2016-11-09 17:18 | ED MED RECONCILIATION SUMMARY ---
Patient: TRACY GOLDSMITH Medication Reconciliation Report [facility] VisitID: [id number] [address] [place] [address] 35y, F Registration Date/Time: 11/09/2016 Weight: 113.3 kg Height/Length: 69 in. BMI: 36.9 ALLERGIES: Codeine The patient's Home Medications are listed below: THE FOLLOWING MEDICATIONS NEED TO BE RECONCILED: Ibuprofen Oral The source(s) of the original Home Medication information: Not obtained. The following Medications were given to the patient in the Emergency Department: Toradol [IM] IM 60 mg, administered: 11/09/2016 1:29:00 PM Dilaudid [IM] IM 1 mg, administered: 11/09/2016 2:17:00 PM Zofran ODT [PO] PO 4 mg, administered: 11/09/2016 2:22:00 PM The following Medications were prescribed to the patient: Flexeril 10 mg: Take 1 orally every 8 hours as needed for muscle spasm. Dispense twenty (20). No refills. Substitution is permissible. -- Letty Woodward, Adina.R.N.P. Ultram 50 mg tablets: take 1-2 orally every 6 hours as needed for pain. Dispense twenty (20). No refills. Substitution is permissible. -- Letty Woodward A.R.N.P.
--- NOTE | 2016-11-09 17:18 | ED MED RECONCILIATION SUMMARY ---
Patient: TRACY GOLDSMITH Medication Reconciliation Report [facility] VisitID: [id number] [address] [place] [address] 35y, F Registration Date/Time: 11/09/2016 Weight: 113.3 kg Height/Length: 69 in. BMI: 36.9 ALLERGIES: Codeine The patient's Home Medications are listed below: THE FOLLOWING MEDICATIONS NEED TO BE RECONCILED: Ibuprofen Oral The source(s) of the original Home Medication information: Not obtained. The following Medications were given to the patient in the Emergency Department: Toradol [IM] IM 60 mg, administered: 11/09/2016 1:29:00 PM Dilaudid [IM] IM 1 mg, administered: 11/09/2016 2:17:00 PM Zofran ODT [PO] PO 4 mg, administered: 11/09/2016 2:22:00 PM The following Medications were prescribed to the patient: Flexeril 10 mg: Take 1 orally every 8 hours as needed for muscle spasm. Dispense twenty (20). No refills. Substitution is permissible. -- Letty Woodward, Adina.R.N.P. Ultram 50 mg tablets: take 1-2 orally every 6 hours as needed for pain. Dispense twenty (20). No refills. Substitution is permissible. -- Letty Woodward A.R.N.P.
--- NOTE | 2016-11-09 17:18 | ED MAR SUMMARY ---
..... Medication Administration Record [facility] [address] [place] [address] Patient: TRACY GOLDSMITH Visit ID: [id number] 35y, F Weight: 113.3 kg Height/Length: 69 in BMI: 36.9 ALLERGIES: Codeine Given 13:29 11/09/2016 Concepción Rincon, Medication Administered: TORADOL [IM] (KETOROLAC TROMETHAMINE), Dose: 60 mg IM. Medication Ordered: Toradol IM 60 mg (NOW). Given 14:17 11/09/2016 Ade Levy, R.N. Medication Administered: DILAUDID [IM] (HYDROMORPHONE HCL PF), Dose: 1 mg IM. Medication Ordered: Dilaudid IM 1 mg (HIGH ALERT MEDICATION, NOW). Given 14:22 11/09/2016 Ade Levy, R.N. Medication Administered: ZOFRAN ODT [PO] (ONDANSETRON), Dose: 4 mg Oral Disintegrating Tablets PO. Medication Ordered: Zofran ODT PO 4 mg (NOW).
--- NOTE | 2016-11-09 17:18 | ED DISCHARGE INSTRUCTIONS ---
Patient: TRACY GOLDSMITH General Instructions [facility] VisitID: [id number] [place] [address] 35y, F Registration Date/Time: 11/09/2016 Chronic nontraumatic lumbar back pain. Sciatica present on the right. No back pain associated with scoliosis, degenerative joint disease, degenerative disc disease, disc herniation or spinal stenosis. No radiculopathy or neurological deficit. INSTRUCTIONS Warnings: GENERAL WARNINGS: Return or contact your physician immediately if your condition worsens or changes unexpectedly, if not improving as expected, or if other problems arise. SPECIFICALLY, return if you develop incontinence of urine (loss of bladder control). chest pain, trouble breathing, abdominal pain. Prescription Medications: Flexeril 10 mg: Take 1 orally every 8 hours as needed for muscle spasm. Dispense twenty (20). No refills. Substitution is permissible. Ultram 50 mg tablets: take 1-2 orally every 6 hours as needed for pain. Dispense twenty (20). No refills. Substitution is permissible. Follow-up: Follow up with your doctor in about one week even if well. Call for an appointment. Summary of care provided to patient. Understanding of the discharge instructions verbalized by patient. ADDITIONAL INFORMATION Back Pain [Acute Or Chronic] Back pain is usually caused by an injury to the muscles or ligaments of the spine. Sometimes the disks that separate each bone in the spine may bulge and cause pain by pressing on a nearby nerve. Back pain may also appear after a sudden twisting/bending force (such as in a car accident), after a simple awkward movement, or lifting something heavy with poor body positioning. In either case, muscle spasm is often present and adds to the pain. Acute back pain usually gets better in one to two weeks. Back pain related to disk disease, arthritis in the spinal joints or spinal stenosis (narrowing of the spinal canal) can become chronic and last for months or years. Unless you had a physical injury (for example, a car accident or fall) X-rays are usually not ordered for the initial evaluation of back pain. If pain continues and does not respond to medical treatment, x-rays and other tests may be performed at a later time. Home Care: You may need to stay in bed the first few days. But, as soon as possible, begin sitting or walking to avoid problems with prolonged bed rest (muscle weakness, worsening back stiffness and pain, blood clots in the legs). When in bed, try to find a position of comfort. A firm mattress is best. Try lying flat on your back with pillows under your knees. You can also try lying on your side with your knees bent up towards your chest and a pillow between your knees. Avoid prolonged sitting. This puts more stress on the lower back than standing or walking. During the first two days after injury, apply an ICE PACK to the painful area for 20 minutes every 2-4 hours. This will reduce swelling and pain. HEAT (hot shower, hot bath or heating pad) works well for muscle spasm. You can start with ice, then switch to heat after two days. Some patients feel best alternating ice and heat treatments. Use the one method that feels the best to you. You may use acetaminophen (Tylenol) or ibuprofen (Motrin, Advil) to control pain, unless another pain medicine was prescribed. [NOTE: If you have chronic liver or kidney disease or ever had a stomach ulcer or GI bleeding, talk with your doctor before using these medicines.] Be aware of safe lifting methods and do not lift anything over 15 pounds until all the pain is gone. Follow Up with your doctor or this facility if your symptoms do not start to improve after one week. Physical therapy may be needed. [NOTE: If X-rays were taken, they will be reviewed by a radiologist. You will be notified of any new findings that may affect your care.] Get Prompt Medical Attention if any of the following occur: Pain becomes worse or spreads to your legs Weakness or numbness in one or both legs Loss of bowel or bladder control Numbness in the groin or genital area Sciatica Sciatica ("Lumbar Radiculopathy") causes a pain that spreads from the lower back down into the buttock, hip and leg. Sometimes leg pain can occur without any back pain. Sciatica is due to irritation or pressure on a spinal nerve as it comes out of the spinal canal. This is most often due to a bulge or rupture of a nearby spinal disk (the cartilage cushion between each spinal bone), which presses on a nearby nerve. Other causes include spinal stenosis (narrowing of the spinal canal) and spasm of the pyriform muscle (a muscle in the buttocks that the sciatic nerve passes through). Sciatica may begin after a sudden twisting/bending force (such as in a car accident), or sometimes after a simple awkward movement. In either case, muscle spasm is commonly present and contributes to the pain. The diagnosis of sciatica is made from the symptoms and physical exam. Unless you had a physical injury (such as a car accident or fall), X-rays are usually not ordered for the initial evaluation of sciatica because the nerves and disks cannot be seen on an x-ray. If signs of a compressed nerve are present (for example, loss of tendon reflex or strength in the leg), an MRI (magnetic resonance imaging) scan will need to be scheduled as an outpatient. Most sciatica (80-90%) gets better with medicine, exercise, physical therapy. If symptoms continue after at least three months of medical treatment, surgery may be considered. Home Care: You may need to stay in bed the first few days. But, as soon as possible, begin sitting or walking to avoid problems with prolonged bed rest. When in bed, try to find a position of comfort. A firm mattress is best. Try lying flat on your back with pillows under your knees. You can also try lying on your side with your knees bent up towards your chest and a pillow between your knees. Avoid prolonged sitting. This puts more stress on the lower back than standing or walking. Some persons find relief with heat (hot shower, hot bath or heating pad) and massage, while others prefer cold packs (crushed or cubed ice in a plastic bag, wrapped in a towel). Try both and use the method that feels best for 20 minutes several times a day. You may use acetaminophen (Tylenol) or ibuprofen (Motrin, Advil) to control pain, unless another pain medicine was prescribed. [ NOTE: If you have chronic liver or kidney disease or ever had a stomach ulcer or GI bleeding, talk with your doctor before using these medicines.] Be aware of safe lifting methods and do not lift anything over 15 pounds until all the pain is gone. Follow Up with your doctor or this facility if your symptoms do not start to improve after one week. Physical therapy or further testing may be needed. [NOTE: If X-rays were taken, they will be reviewed by a radiologist. You will be notified of any new findings that may affect your care.] Get Prompt Medical Attention if any of the following occur: Pain becomes worse, not controlled by the prescribed medicine Weakness or numbness in one or both legs Numbness in the groin, genital area Loss of bowel or bladder control Cyclobenzaprine Hydrochloride Oral tablet What is this medicine? CYCLOBENZAPRINE (naren benoit) is a muscle relaxer. It is used to treat muscle pain, spasms, and stiffness. How should I use this medicine? Take this medicine by mouth with a glass of water. Follow the directions on the prescription label. If this medicine upsets your stomach, take it with food or milk. Take your medicine at regular intervals. Do not take it more often than directed. Talk to your dinkey engine operator regarding the use of this medicine in children. Special care may be needed. What side effects may I notice from receiving this medicine? Side effects that you should report to your doctor or health gericare aide teacher as soon as possible: allergic reactions like skin rash, itching or hives, swelling of the face, lips, or tongue chest pain fast heartbeat hallucinations seizures vomiting Side effects that usually do not require medical attention (report to your doctor or health gericare aide teacher if they continue or are bothersome): headache What may interact with this medicine? Do not take this medicine with any of the following medications: cisapride droperidol flecainide grepafloxacin halofantrine levomethadyl MAOIs like Carbex, Eldepryl, Marplan, Nardil, and Parnate nilotinib pimozide probucol sertindole This medicine may also interact with the following medications: abarelix alcohol contrast dyes dolasetron guanethidine medicines for cancer medicines for depression, anxiety, or psychotic disturbances medicines to treat an irregular heartbeat medicines used for sleep or numbness during surgery or procedure methadone octreotide ondansetron palonosetron phenothiazines like chlorpromazine, mesoridazine, prochlorperazine, thioridazine some medicines for infection like alfuzosin, chloroquine, clarithromycin, levofloxacin, mefloquine, pentamidine, troleandomycin tramadol vardenafil What if I miss a dose? If you miss a dose, take it as soon as you can. If it is almost time for your next dose, take only that dose. Do not take double or extra doses. Where should I keep my medicine? Keep out of the reach of children. Store at room temperature between 15 and 30 degrees C (59 and 86 degrees F). Keep container tightly closed. Throw away any unused medicine after the expiration date. What should I tell my health care provider before I take this medicine? They need to know if you have any of these conditions: heart disease, irregular heartbeat, or previous heart attack liver disease thyroid problem an unusual or allergic reaction to cyclobenzaprine, tricyclic antidepressants, lactose, other medicines, foods, dyes, or preservatives or trying to get breast-feeding What should I watch for while using this medicine? Check with your doctor or health gericare aide teacher if your condition does not improve within 1 to 3 weeks. You may get drowsy or dizzy when you first start taking the medicine or change doses. Do not drive, use machinery, or do anything that may be dangerous until you know how the medicine affects you. Stand or sit up slowly. Your mouth may get dry. Drinking water, chewing sugarless gum, or sucking on hard candy may help. Tramadol Hydrochloride Oral tablet What is this medicine? TRAMADOL (TRA ma dole) is a pain reliever. It is used to treat moderate to severe pain in adults. How should I use this medicine? Take this medicine by mouth with a full glass of water. Follow the directions on the prescription label. If the medicine upsets your stomach, take it with food or milk. Do not take more medicine than you are told to take. Talk to your dinkey engine operator regarding the use of this medicine in children. Special care may be needed. What side effects may I notice from receiving this medicine? Side effects that you should report to your doctor or health gericare aide teacher as soon as possible: allergic reactions like skin rash, itching or hives, swelling of the face, lips, or tongue breathing difficulties, wheezing confusion itching light headedness or fainting spells redness, blistering, peeling or loosening of the skin, including inside the mouth seizures Side effects that usually do not require medical attention (report to your doctor or health gericare aide teacher if they continue or are bothersome): constipation dizziness drowsiness headache nausea, vomiting What may interact with this medicine? Do not take this medicine with any of the following medications: MAOIs like Carbex, Eldepryl, Marplan, Nardil, and Parnate This medicine may also interact with the following medications: alcohol or medicines that contain alcohol antihistamines benzodiazepines bupropion carbamazepine or oxcarbazepine clozapine cyclobenzaprine digoxin furazolidone linezolid medicines for depression, anxiety, or psychotic disturbances medicines for migraine headache like almotriptan, eletriptan, frovatriptan, naratriptan, rizatriptan, sumatriptan, zolmitriptan medicines for pain like pentazocine, buprenorphine, butorphanol, meperidine, nalbuphine, and propoxyphene medicines for sleep muscle relaxants naltrexone phenobarbital phenothiazines like perphenazine, thioridazine, chlorpromazine, mesoridazine, fluphenazine, prochlorperazine, promazine, and trifluoperazine procarbazine warfarin What if I miss a dose? If you miss a dose, take it as soon as you can. If it is almost time for your next dose, take only that dose. Do not take double or extra doses. Where should I keep my medicine? Keep out of the reach of children. Store at room temperature between 15 and 30 degrees C (59 and 86 degrees F). Keep container tightly closed. Throw away any unused medicine after the expiration date. What should I tell my health care provider before I take this medicine? They need to know if you have any of these conditions: brain tumor depression drug abuse or addiction head injury if you frequently drink alcohol containing drinks kidney disease or trouble passing urine liver disease lung disease, asthma, or breathing problems seizures or epilepsy suicidal thoughts, plans, or attempt; a previous suicide attempt by you or a family member an unusual or allergic reaction to tramadol, codeine, other medicines, foods, dyes, or preservatives or trying to get breast-feeding What should I watch for while using this medicine? Tell your doctor or health gericare aide teacher if your pain does not go away, if it gets worse, or if you have new or a different type of pain. You may develop tolerance to the medicine. Tolerance means that you will need a higher dose of the medicine for pain relief. Tolerance is normal and is expected if you take this medicine for a long time. Do not suddenly stop taking your medicine because you may develop a severe reaction. Your body becomes used to the medicine. This does NOT mean you are addicted. Addiction is a behavior related to getting and using a drug for a non-medical reason. If you have pain, you have a medical reason to take pain medicine. Your doctor will tell you how much medicine to take. If your doctor wants you to stop the medicine, the dose will be slowly lowered over time to avoid any side effects. You may get drowsy or dizzy. Do not drive, use machinery, or do anything that needs mental alertness until you know how this medicine affects you. Do not stand or sit up quickly, especially if you are an older patient. This reduces the risk of dizzy or fainting spells. Alcohol can increase or decrease the effects of this medicine. Avoid alcoholic drinks. You may have constipation. Try to have a bowel movement at least every 2 to 3 days. If you do not have a bowel movement for 3 days, call your doctor or health gericare aide teacher. Your mouth may get dry. Chewing sugarless gum or sucking hard candy, and drinking plenty of water may help. Contact your doctor if the problem does not go away or is severe. You have been given the following additional information: Back Pain (Acute Or Chronic) Back Pain W/ Sciatica Cyclobenzaprine Hydrochloride Oral tablet Tramadol Hydrochloride Oral tablet (Electronically signed by Letty Woodward A.R.N.P. 11/09/2016 17:18)
--- NOTE | 2016-11-09 17:18 | ED MAR SUMMARY ---
..... Medication Administration Record [facility] [address] [place] [address] Patient: TRACY GOLDSMITH Visit ID: [id number] 35y, F Weight: 113.3 kg Height/Length: 69 in BMI: 36.9 ALLERGIES: Codeine Given 13:29 11/09/2016 Concepción Rincon, Medication Administered: TORADOL [IM] (KETOROLAC TROMETHAMINE), Dose: 60 mg IM. Medication Ordered: Toradol IM 60 mg (NOW). Given 14:17 11/09/2016 Ade Levy, R.N. Medication Administered: DILAUDID [IM] (HYDROMORPHONE HCL PF), Dose: 1 mg IM. Medication Ordered: Dilaudid IM 1 mg (HIGH ALERT MEDICATION, NOW). Given 14:22 11/09/2016 Ade Levy, R.N. Medication Administered: ZOFRAN ODT [PO] (ONDANSETRON), Dose: 4 mg Oral Disintegrating Tablets PO. Medication Ordered: Zofran ODT PO 4 mg (NOW).
== END 2016-11-09 14:25 | disposition home or self-care (01) ==
LOC: ED SRH 11:53
DX: G89.29 Other chronic pain (principal); M54.41 Lumbago with sciatica, right side; Z72.0 Tobacco use